=== PATIENT | male | born 1975 | race Caucasian/White ===

== ENCOUNTER 2016-12-08 12:10 | Emergency (ER) ==
[2016-12-08] MEDS ORDERED: ZOFRAN ODT PO ONE (13:22)
--- NOTE | 2016-12-08 13:31 | PROVIDER DOCUMENTATION ---
HPI-Abdominal Pain/GI Problem - General Chief Complaint: Abdominal Pain Stated Complaint: N/V/D Time Seen by Provider: 12/08/16 12:44 Source: patient Allergies/Adverse Reactions: Patient Allergies Allergy/AdvReac Type Severity Reaction Status Date / Time Latex, Natural Rubber Allergy Intermediate SWELLING Verified 12/08/16 12:21 Penicillins Allergy Intermediate SWELLING Verified 12/08/16 12:21 warfarin sodium * Allergy Intermediate SWELLING Verified 12/08/16 12:21 [From Coumadin] acetaminophen AdvReac Mild "makes Verified 12/08/16 12:21 [From Lorcet (hydrocodone)] pain worse; opposite reaction" hydrocodone bitartrate * AdvReac Mild "makes Verified 12/08/16 12:21 [From Lorcet (hydrocodone)] pain worse; opposite reaction" Home Medications: No Home Medications 09/28/15 - History of Present Illness-ABD Nature of Presenting Problems: Reports abd pain with n,v x 2 days with fever and chills. Reports black "ashy" like emesis. Deneis diarrhea,constipation,sob. Abdominal Pain Onset Location: reports: generalized abdomen Quality of Pain: reports: aching Severity in ED: reports: severe Onset/Duration: reports: 2 days ago Timing: reports: still present Bruising or Bleeding Gums?: No Similar Symptoms Previously?: No Recently seen or treated by another doctor?: No Review of Systems - Adult - REVIEW OF SYSTEMS - ADULT Constitutional: reports: chills, fever. denies: fatique Eyes: reports: no symptoms reported Ears, Nose, Mouth & Throat: denies: ear pain, sinus problem, throat pain Cardiovascular: reports: no symptoms reported Respiratory: denies: cough, shortness of breath, wheezing Gastrointestinal: reports: abdominal pain, nausea, vomiting. denies: diarrhea, difficulty swallowing, frequent heartburn Genitourinary: reports: no symptoms reported Musculoskeletal: reports: no symptoms reported Integumentary: reports: no symptoms reported Neurological: reports: no symptoms reported Psychiatric: reports: no symptoms reported Endocrine: reports: no symptoms reported Hematologic/Lymphatic: reports: no symptoms reported Allergic/Immunologic: reports: no symptoms reported All Other Systems: Reviewed and Negative Past History - Adult - PAST MEDICAL HISTORY-ADULT Review of Records: reports: Nursing Assessment Review Major Childhood Illnesses: reports: denies history Cardiovascular: reports: denies history Endocrine/Immune: reports: other (Latex allergy) - PRIOR SURGERIES/PROCEDURES Surgical/Procedure History: reports: none - IMMUNIZATION STATUS Childhood Immunizations: See Nurse Assessment Flu Vaccine: See Nurse Assessment - FAMILY HISTORY Family History: reviewed, not pertinent - SOCIAL HISTORY Smoking: cigarettes, less than 1 pack/day Provider spent 3-5 mins advising pt. on dangers of tobacco.: Discussed manners to quit use, and f/u contacts for add'l counseling. Substance Use: none/never Physical Exam-General - PHYSICAL EXAM-ADULT Initial Vital Signs Reviewed: Yes - CONSTITUTIONAL General Appearance: appears well, alert, no apparent distress - EYES Eyes: PERRL/EOMI, pink conjunctivae - HEAD, EARS, NOSE, MOUTH & THROAT HENMT: normocephalic/atraumatic, moist mucous membranes, normal ENT inspection - NECK Neck: non-tender, full range of motion, normal inspection - RESPIRATORY Respiratory: chest non-tender, lungs clear, normal breath sounds - CARDIOVASCULAR Cardiovascular: normal peripheral pulses, regular rate, rhythm, no edema - GASTROINTESTINAL (ABDOMEN) Abdominal Exam: normal bowel sounds, non tender, soft - LYMPHATIC Lymphatic: no adenopathy - MUSCULOSKELETAL Back Exam: normal inspection, no CVA tenderness, no vertebral tenderness Extremity: normal range of motion, non-tender, normal gait - SKIN Integumentary: normal color, normal turgor, warm/dry - NEUROLOGIC Neurologic: grossly normal, no motor/sensory deficits - PSYCHIATRIC Psych/Mental Status: normal mood/affect, normal thought content, normal thought process, oriented x 3 Progress - PLAN OF CARE/RESULTS Progress/Plan/Lab Results: Orders Category Date Time Status CT ABD/PELVIS W/ IV CONT ONLY [CT] Stat Exams 12/08/16 13:25 Ordered AMYLASE [CHEM] Stat Lab 12/08/16 13:21 Ordered CBC WITH DIFF [HEME] Stat Lab 12/08/16 13:21 Ordered CMP [COMPREHENSIVE METABOLIC PANEL] [CHEM] Stat Lab 12/08/16 13:21 Ordered LIPASE [CHEM] Stat Lab 12/08/16 13:22 Ordered UA [URINALYSIS PL] [URINALYSIS] Stat Lab 12/08/16 13:22 Ordered Ondansetron Odt [Zofran Odt] Med 12/08/16 13:22 Discontinued 4 mg PO NOW ONE Vital Signs - 24 hr 12/08/16 12:18 Temperature 98.3 F Pulse Rate 112 H Respiratory 18 Rate Blood Pressure 123/79 O2 Sat by Pulse 100 Oximetry Laboratory Tests 12/08/16 12/08/16 12/08/16 12:23 13:31 13:31 WBC 9.61 RBC 5.03 Hgb 15.5 Hct 46.6 MCV 92.6 MCH 30.8 MCHC 33.3 RDW Std Deviation 13.2 Plt Count 165 MPV 12.4 H Immature Gran % (Auto) 0.2 Neut % (Auto) 76.4 H Lymph % (Auto) 15.0 L [place] % (Auto) 7.5 Eos % (Auto) 0.8 Baso % (Auto) 0.1 Immature Gran # (Auto) 0.02 Neut # (Auto) 7.34 H Lymph # (Auto) 1.44 [place] # (Auto) 0.72 H Eos # (Auto) 0.08 Baso # (Auto) 0.01 Sodium 138 Potassium 4.5 Chloride 102 Carbon Dioxide 29 Anion Gap 7 BUN 14 Creatinine 1.0 Estimated GFR/1.73 m2 > 60 BUN/Creatinine Ratio 14 Glucose 84 Calculated Osmolality 275 Calcium 9.8 Total Bilirubin 0.70 AST 16 ALT 11 Alkaline Phosphatase 94 Total Protein 7.8 Albumin 4.6 Globulin 3.0 Albumin/Globulin Ratio 1.0 Amylase 83 Lipase Urine Source CLEAN CATCH Urine Color YELLOW Urine Clarity SL. CLOUDY A Urine pH 6.5 Ur Specific [place] 1.020 Urine Protein 1+(30 mg/dL) A Urine Ketones TRACE Urine Blood 1+ A Urine Nitrite NEGATIVE Urine Bilirubin NEGATIVE Urine Urobilinogen 4+(12 mg/dL) Urine Microscopic RBC <10 Urine WBC 1+ A Urine Microscopic WBC 10-20 A Ur Epithelial Cells <10 Urine Bacteria 2+ Urine Glucose NEGATIVE 12/08/16 13:31 WBC RBC Hgb Hct MCV MCH MCHC RDW Std Deviation Plt Count MPV Immature Gran % (Auto) Neut % (Auto) Lymph % (Auto) [place] % (Auto) Eos % (Auto) Baso % (Auto) Immature Gran # (Auto) Neut # (Auto) Lymph # (Auto) [place] # (Auto) Eos # (Auto) Baso # (Auto) Sodium Potassium Chloride Carbon Dioxide Anion Gap BUN Creatinine Estimated GFR/1.73 m2 BUN/Creatinine Ratio Glucose Calculated Osmolality Calcium Total Bilirubin AST ALT Alkaline Phosphatase Total Protein Albumin Globulin Albumin/Globulin Ratio Amylase Lipase 20 Urine Source Urine Color Urine Clarity Urine pH Ur Specific [place] Urine Protein Urine Ketones Urine Blood Urine Nitrite Urine Bilirubin Urine Urobilinogen Urine Microscopic RBC Urine WBC Urine Microscopic WBC Ur Epithelial Cells Urine Bacteria Urine Glucose - CT/MRI 1 CT Study: Abdomen, Pelvis Impression: Abnormal (Thickened urinary bladder wall. This may be due to chronic partial outlet obstruction related to prostatic hypertrophy. Correlate clinically to exclude cystiitis. Possible constipation.) Departure - Departure Time of Disposition Order: 15:13 DIAGNOSIS: Constipated Qualifiers: Constipation type: unspecified constipation type Qualified Code(s): K59.00 - Constipation, unspecified UTI (urinary tract infection) Qualifiers: Urinary tract infection type: site unspecified Hematuria presence: without hematuria Qualified Code(s): N39.0 - Urinary tract infection, site not specified Nausea & vomiting Qualifiers: Vomiting type: unspecified Vomiting Intractability: non-intractable Qualified Code(s): R11.2 - Nausea with vomiting, unspecified Disposition: HOME 01 Certified Medical Emergency: Emergent Condition: Stable Additional Instructions: ED Follow Up Instructions: You have been treated by a care provider in the Emergency Department. These instructions are being provided to you so you can have an understanding of how to care for yourself upon discharge. Upon discharge from the Emergency Department, you are responsible for making arrangements for follow-up care by a physician of your choice. Take all prescribed medications as directed. Return to the Emergency Department immediately for any new or worsening symptoms. You may call the Physician Referral phone number at [phone] to obtain a list of Physicians who are taking new patients. Attestation - Scribe Verification/Attestation Scribe:: Diego Munoz Acting as Scribe for:: Anais Eng Scribe documention review:: This chart was documented by a scribe and accurately reflects the service the provider performed and the decisions made by the provider.
[2016-12-08 13:50] LABS: URINE SOURCE CLEAN CATCH
[2016-12-08 13:51] LABS: MANUAL DIFF NEEDED? NO
[2016-12-08 13:55] LABS: BASO% 0.1 % (0.0-0.8); EOS# 0.08 X1000 (0.0-0.7); EOS% 0.8 % (0.0-10.0); HEMATOCRIT 46.6 % (42.0-52.0); HEMOGLOBIN 15.5 g/dL (14.0-18.0); IMM GRAN# 0.02 X1000 (0.0-0.04); IMM GRAN% 0.2 % (0.0-0.5); LYMPH# 1.44 X1000 (1.2-3.4); MCH 30.8 PG (27-31); MCHC 33.3 g/dL (33-37); MCV 92.6 FL (81-99); MONO# 0.72 X1000 (0.11-0.59); MONO% 7.5 % (1.7-9.3); MPV 12.4 FL (7.4-10.4); NEUT% 76.4 % (42.2-75.2); PLT 165 X1000 (130-400); RBC 5.03 XMIL (4.7-6.1)
[2016-12-08 14:05] LABS: BILIRUBIN URINE NEGATIVE (NEGATIVE); BLOOD URINE 1+ (NEGATIVE); CLARITY SL. CLOUDY (CLEAR); COLOR YELLOW; GLUCOSE URINE NEGATIVE (NEGATIVE); LEUKOCYTES URINE 1+ (NEGATIVE); NITRITE URINE NEGATIVE (NEGATIVE); PH URINE 6.5; PROTEIN URINE 1+(30 mg/dL) mg/dL (NEGATIVE); URINE MICROSCOPIC NEEDED? YES; UROBILINOGEN URINE 4+(12 mg/dL)
[2016-12-08 14:07] LABS: URINE EPITHELIAL CELLS <10 /HPF (<10); URINE RBC <10 /HPF (<10)
[2016-12-08 14:16] LABS: AGAP 7; ALBUMIN 4.6 g/dL (3.5-5.0); ALKALINE PHOSPHATASE 94 U/L (32-122); AMYLASE 83 U/L (20-200); BUN 14 mg/dL (8-22); CALCIUM 9.8 mg/dL (8.8-10.2); CHLORIDE 102 mmol/L (98-107); COSMO 275; GOT 16 U/L (10-34); GPT 11 U/L (10-44); POTASSIUM 4.5 mmol/L (3.5-5.1); SODIUM 138 mmol/L (136-145); TCO2 29 mmol/L (25-35); TOTAL PROTEIN 7.8 g/dL (6.3-8.3)
--- NOTE | 2016-12-08 15:16 | Diag Imaging Result Document ---
PROCEDURE NAME: CT ABD/PELVIS W/ IV CONT ONLY - 12/08/2016 CT ABDOMEN AND PELVIS WITH IV CONTRAST: COMPARISON: None available. FINDINGS: There are a few scattered granulomata throughout the spleen. The gallbladder is partially contracted and is unremarkable, otherwise. The kidneys appear normal. There is no evidence of appendicitis. There is a fair amount of stool seen throughout the colon suggesting constipation. There is no evidence of bowel obstruction. The prostate is somewhat prominent measuring about 5.4 x 4.1 cm axially. The urinary bladder is partially distended, and there is urinary bladder wall thickening. This may be due to trabecular thickening related to partial chronic outlet obstruction due to prostatic hypertrophy. However, correlate clinically to exclude cystitis. There is a 1.3 cm nodule at the inferior aspect of the right adrenal gland. Statistically, this very likely represents a small adenoma. The remainder of the solid viscera of the abdomen and pelvis and the remainder of the GI tract is essentially unremarkable. IMPRESSION: 1. Thickened urinary bladder wall as described. Correlate clinically to exclude cystitis. Please see above discussion. 2. Suggestion of constipation. 3. Other incidental/nonacute findings detailed above. [facility]
[2016-12-08 15:39] VITALS: BP 119/87
== END 2016-12-08 15:39 | disposition home or self-care (01) ==
LOC: P.ED 12:10
DX: K59.00 Constipation, unspecified (principal); N39.0 Urinary tract infection, site not specified; R11.2 Nausea with vomiting, unspecified; R10.84 Generalized abdominal pain; R50.9 Fever, unspecified; F17.210 Nicotine dependence, cigarettes, uncomplicated; Z71.6 Tobacco abuse counseling
CPT/HCPCS: 74177; 80053; 81001; 82150; 83690; 85025; Q9967